=== PATIENT | female | born 2000 | race Caucasian/White ===

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

== ENCOUNTER 2021-02-28 19:12 | Emergency (ER) | payer OTHER, MEDICAID, SELFPAY ==
[2021-02-28 19:32] VITALS: BP 123/62; PULSE 80; RESP 16; TEMP 37.1; O2SAT 100; BMI 24.3
--- NOTE | 2021-02-28 19:35 | DI.RAD.S_ITS ---
PROCEDURE: XR TOE LT MIN 2V INDICATIONS: dropped bed frame on toe TECHNIQUE: 2 views of the 2nd toe(s) acquired. COMPARISON: None. FINDINGS: Bones: No fractures or dislocations. No suspicious bony lesions. Soft tissues: No suspicious soft tissue densities. IMPRESSION: No visualized acute fracture or dislocation. However, if clinical concern and/or pain persist, short interval imaging followup in 7-10 days is recommended, as occult injury cannot be definitively excluded. Dictated by: Yolanda Angel M.D. on 02/28/2021 at 19:57 Approved by: Yolanda Angel M.D. on 02/28/2021 at 19:58
--- NOTE | 2021-02-28 21:22 | ED_ITS ---
HPI - Extremity Injury (Lower) General Chief Complaint: Extremity Injury, Lower Stated Complaint: DROPPED HER BED ON HER LEFT FOOT Time Seen by Provider: 02/28/21 21:12 Source: patient Mode of arrival: Ambulatory History of Present Illness HPI Narrative: Patient is an 19-year-old female here for evaluation of an injury to the 2nd toe on her left foot. She dropped a piece of furniture on it earlier today. Has pain in the toe since then. Related Data Allergies Allergy/AdvReac Type Severity Reaction Status Date / Time No Known Drug Allergies Allergy Verified 04/02/20 19:42 Review of Systems Musculoskeletal Musculoskeletal: Reports system reviewed and no additional complaints, except as documented and Reports as per HPI Integumentary/Breasts Skin/Breast: Reports system reviewed and no additional complaints, except as documented and Reports as per HPI Neurologic Neurologic: Reports system reviewed and no additional complaints, except as documented Hematologic/Lymphatic On Anticoagulants: No Patient History Social History Smoking Status: Current every day smoker Smoking Status: Current every day smoker alcohol intake frequency: 0-2 drinks per day Substance Use Type: does not use Exam Initial Vital Signs Initial Vital Signs: Vital Signs Temperature 98.7 F 02/28/21 19:32 Pulse Rate 80 02/28/21 19:32 Respiratory Rate 16 02/28/21 19:32 Blood Pressure 123/62 02/28/21 19:32 Pulse Oximetry 100 02/28/21 19:32 Skin Other: Slight contusion at the base of the nail of the left 2nd toe. Neuro General: patient alert and patient awake Extrem Other: Pain to palpation left 2nd toe Course Orders Ordered: ED Orders 02/28/21 19:35 XR toe LT min 2V Stat Vital Signs Vital signs: Vital Signs - 8 hr 02/28/21 19:32 Temperature 98.7 F Pulse Rate 80 Respiratory Rate 16 Blood Pressure 123/62 Pulse Oximetry 100 MDM - Extremity Injury (Lower) Imaging Data Extremity x-ray #1: Radiologist's Impression: [address] [address] XRay Report Signed Patient: Any Austin MR#: [id number] : 2000 Acct:[id number] Age/Sex: 20 / F Date of Service: 02/28/21 Loc: ED Accession Number: [id number] ?? Procedure: XR toe LT min 2V Ordering Provider: Brandon Vasquez D.O. PROCEDURE:? XR TOE LT MIN 2V ? INDICATIONS:? dropped bed frame on toe ? TECHNIQUE:? 2 views of the 2nd toe(s) acquired.? ? COMPARISON:? None. ? FINDINGS:? ? Bones:? No fractures or dislocations.? No suspicious bony lesions.? ? Soft tissues:? No suspicious soft tissue densities.? ? IMPRESSION:? No visualized acute fracture or dislocation. However, if clinical concern and/or pain persist, short interval imaging followup in 7-10 days is recommended, as occult injury cannot be definitively excluded. ? ? Dictated by: Yolanda Angel M.D. on 02/28/2021 at 19:57 ? ? Approved by: Yolanda Angel M.D. on 02/28/2021 at 19:58? MDM Narrative Medical decision making narrative: No fractures on the x-ray, neurovascular intact, no further intervention to the emergency department. She was given care instructions return precautions. She expressed understanding and agreement. Discharge Plan Departure Patient Disposition: Home Clinical Impression: Contusion of toe Instructions: How To Perform RICE (Rest, Ice, Compress, Elevate) Activity Restrictions/Additional Instructions: There are no fractures noted on the x-rays. You can take Tylenol or ibuprofen for discomfort. You can ice the area as well. Return to the emergency department for any new or worsening symptoms. Referrals: Mark Pickens MD [Primary Care Provider] -
== END 2021-02-28 21:39 | disposition home or self-care (01) ==
PROVIDERS: Emergency Provider Emergency Medicine; PCP Pediatrics
DX: S90.122A Contusion of left lesser toe(s) without damage to nail, initial encounter (principal); W20.8XXA Other cause of strike by thrown, projected or falling object, initial encounter
CPT/HCPCS: 73660; 99281; 99283

== ENCOUNTER 2023-03-18 09:32 | Emergency (ER) | payer OTHER, MEDICAID, SELFPAY ==
[2023-03-18 09:45] VITALS: BP 114/63; PULSE 89; RESP 16; TEMP 36.4; O2SAT 96; BMI 32.6
--- NOTE | 2023-03-18 11:05 | ED_ITS ---
HPI - Skin/Abscess/Foreign Bdy <Britany Rodgers PA-C - Last Filed: 03/18/23 20:06> General Chief complaint: Skin/Abscess/Foreign Body Stated complaint: Mass under L breast Time Seen by Provider: 03/18/23 11:04 History of Present Illness HPI narrative: This is a 22-year-old woman who is obese but denies other medical problems who presents with concern for left breast pain. Patient states the pain started on Saturday when she was having sex with her partner. She describes it as a burning pain that is underneath her left nipple and that she also feels in her skin wrapping around her side towards her back on the left. She denies chest pain or abdominal pain states that this feels more like a skin irritation or pain. She feels she has seen some redness in the area and also feels that there may be some lumpiness to her breast at the site of pain. She is tried Tylenol and ibuprofen it has not helped very much. She states that she was vaccinated for chickenpox and does not think she ever had it. She has not noticed any rashes in the area of her pain nor has she had any nipple discharge or drainage. She states she is very nervous and concerned that her symptoms today could represent breast cancer because her grandmother had breast cancer recently and is going back for re-evaluation and mammogram soon as there is some concern she may have a recurrence. Patient denies any personal history of breast cancer or any other family history of breast cancer. She denies fevers chills nausea vomiting back pain chest pain abdominal pain or any other symptoms and has otherwise been in her usual state of. She is currently menstruating and is on day 7 of her cycle. Related Data Previous Rx's Medication Instructions Recorded cephalexin 500 mg capsule 500 mg PO Q8H 10 days #30 caps 03/18/23 lidocaine 5 % topical ointment 1 applic topical TID PRN pain 7 03/18/23 days #30 grams Allergies Allergy/AdvReac Type Severity Reaction Status Date / Time No Known Drug Allergies Allergy Verified 03/07/21 11:21 Review of Systems <Britany Rodgers PA-C - Last Filed: 03/18/23 20:06> Review of Systems Narrative: See HPI Patient History <Britany Rodgers PA-C - Last Filed: 03/18/23 20:06> Social History Smoking Status: Current every day smoker Smoking Status: Current every day smoker alcohol intake frequency: 0-2 drinks per day Substance Use Type: does not use Exam <Britany Rodgers PA-C - Last Filed: 03/18/23 20:06> Narrative Exam Narrative: GENERAL: [22] year old patient appears stated age. Well-developed patient, in mild distress. HEAD: Atraumatic. Normocephalic. EYES: Pupils equal round and reactive. Extraocular motions intact. No scleral icterus. No injection or drainage. ENT: Nose without bleeding, purulent drainage. Airway patent. NECK: Trachea midline. Non tender CARDIOVASCULAR: Regular rate and rhythm without murmurs, gallops, or rubs. RESPIRATORY: Clear to auscultation. Breath sounds equal bilaterally. No wheezes, rales, or rhonchi. GASTROINTESTINAL: Abdomen nondistended. EXTREMITIES: No edema or joint tenderness. BACK: See skin. Nontender without deformity or crepitance. No flank tenderness. NEURO: AOx3. SKIN: Limited breast exam of leftbreast with RN Nayely present in the room as party plan sales director reveals no appreciable erythema in the area of the patient's discomfort, the left breast does appear to be slightly more swollen/enlarged than the right, there is no firmness or induration present there is some tenderness present however it is specifically sensitive at the skin itself around 6 o'clock and laterally wrapping around the rib cage to the flankbut not tender with palpation. No rash or erythema of visible areas Initial Vital Signs Initial Vital Signs: Vital Signs Temperature 97.6 F 03/18/23 09:45 Pulse Rate 89 03/18/23 09:45 Respiratory Rate 16 03/18/23 09:45 Blood Pressure 114/63 03/18/23 09:45 Pulse Oximetry 96 03/18/23 09:45 Oxygen Delivery Method Room Air 03/18/23 09:45 <Radha Ibrahim DO - Last Filed: 03/19/23 09:39> Initial Vital Signs Initial Vital Signs: Vital Signs Temperature 97.6 F 03/18/23 09:45 Pulse Rate 89 03/18/23 09:45 Respiratory Rate 16 03/18/23 09:45 Blood Pressure 114/63 03/18/23 09:45 Pulse Oximetry 96 03/18/23 09:45 Oxygen Delivery Method Room Air 03/18/23 09:45 Course <Britany Rodgers PA-C - Last Filed: 03/18/23 20:06> Orders Ordered: ED Orders 03/18/23 11:43 US breast LT limited Stat Vital Signs Vital signs: Vital Signs - 8 hr 03/18/23 15:06 03/18/23 16:15 Pulse Rate 69 89 Respiratory Rate 18 Blood Pressure 95/62 136/63 Pulse Oximetry 96 96 Oxygen Delivery Method Room Air Room Air <Radha Ibrahim DO - Last Filed: 03/19/23 09:39> Orders Ordered: ED Orders 03/18/23 11:43 US breast LT limited Stat Vital Signs Vital signs: Vital Signs - 8 hr 03/18/23 15:06 03/18/23 16:15 Pulse Rate 69 89 Respiratory Rate 18 Blood Pressure 95/62 136/63 Pulse Oximetry 96 96 Oxygen Delivery Method Room Air Room Air MDM - Skin/Abscess/Foreign Bdy <Britany Rodgers PA-C - Last Filed: 03/18/23 20:06> Differential Diagnosis Differential diagnosis: Likely abscess of skin or subcutaneous tissue, herpes zoster, cellulitis and other (mastitis) Medical Records Attestation: I reviewed the patient's medical records. Imaging Data US breast: Radiologist's Impression: Left breast ultrasound was obtained however radiology read did not transfer over to [facility] charting system due to a system wide computer error, and unable to obtain paper read out prior to end of shift however before discharging the patient did discuss imaging results with Radiology who advised this was read as a normal breast ultrasound. Treatment and disposition Shared decision making:: Shared decision-making was used in determining plan of care and evaluation for this patient in the emergency department and plan for outpatient follow-up. MDM Narrative Medical decision making narrative: This is a well-appearing obese 22-year-old female with no significant medical history who presents with concern for breast skin pain below the left nipple with concern for swelling of the left breast as compared to the right and pain in her skin wrapping around her side. Patient denies any chance of and has not had other concerning symptoms such as fevers chills. On presentation she is anxious specifically about the possibility of breast cancer though her symptoms have been present for 2 days' time. Exam is not suggestive of this there are no appreciable skin changes noted however she does have skin sensitivity and the left breast does appear to be slightly swollen as compared to the right. Ultrasound was obtained for further evaluation. Exam does not suggest abscess, cellulitis is considered given skin sensitivity however given the pattern of the pain and the nature of the pain described as burning wrapping around the rib I am somewhat suspicious for herpes zoster. There are no skin changes consistent with this at present. Tylenol and ibuprofen have done little to relieve the patient's discomfort. She reports that she never had chickenpox to her knowledge but she has been vaccinated for chickenpox. She has not had the shingles vaccine. Did call Radiology/ultrasound and discuss ultrasound with them was advised that it was negative/normal, do not have results back at time of discharge however patient has been in the emergency department for over 5 hours and see no reason to hold her longer. Advise the patient will call her with any abnormal results seen on ultrasound. She was discharged with prescription for cephalexin given presumed mild mastitis as cause of her symptoms, as well as lidocaine for pain. Return precautions provided, follow-up plan discussed, all questions answered. Discharge Plan Departure Patient Disposition: Home Clinical Impression: Breast pain, left, Cutaneous sensitivity Activity Restrictions/Additional Instructions: *You have been diagnosed with [left breast pain, no specific diagnosis, possible mild mastitis/cellulitis] *What to do: *Please continue to take your regular medications as directed. [2 ] New medication prescriptions sent to your pharmacy: [Lidocaine, cephalexin ] [ ] New medication written as a paper prescription [ ] No new medications given *Please follow up with your primary care provider in 2-3 days, call for an appointment. Let them know you were seen in the Emergency Department and that we ask that you be seen in follow up. We will electronically transmit a record of today's note if your PCP is in our system. As we discussed at your visit they are multiple potential etiologies or causes for your pain and discomfort of your left breast, the pattern does fit potentially with shingles but you have no history of chickenpox so this is extremely unlikely. We are going to treat with antibiotics today as we discussed and I am hoping that this will resolve on its own and or with the antibiotics if it is a mild mastitis or cellulitis. Thank you for your patients today on a busy day in the emergency department I am sorry you had such a long day and wait for your ultrasound read. I did speak with Radiology by phone and they advised that your ultrasound looked normal. I still do not have the read back at time of discharge and if I see any abnormality on it we will give you a call but I did not want to hold you in the emergency department longer still. In addition to antibiotics I also sent in a prescription for lidocaine which you can use as a numbing medication over the area of pain. *If you do not have a primary care provider please contact the [facility] Resource line at [phone]. They will ask some questions about your medical history and help get you set up with a doctor in the community. *Return to Emergency Department if you should have any new, worsening or concerning symptoms, such as [fever greater than 101 F, shaking chills, worsening pain, persistent vomiting or other bothersome symptoms] Prescriptions: New cephalexin 500 mg capsule 500 mg PO Q8H 10 Days Qty: 30 0RF lidocaine 5 % ointment 1 applic topical TID PRN (Reason: pain) 7 Days Qty: 30 0RF Referrals: Mark Pickens MD [Primary Care Provider] - Stand Alone Forms: Patient Portal/API ED Sign-out <Radha Ibrahim DO - Last Filed: 03/19/23 09:39> Cosign ED Attending Timmy Attestation: I was immediately available in the department for consultation.
--- NOTE | 2023-03-18 11:43 | DI.US.S_ITS ---
LIMITED ULTRASOUND OF LEFT BREAST: 03/18/2023 CLINICAL: Palpable left breast lump. No prior exams were available for comparison. Color flow and real-time ultrasound of the left breast 6 o'clock region were performed on the areas of interest. Sosa scale images of the real-time examination were reviewed. IMPRESSION: NEGATIVE There is no sonographic evidence of malignancy. There is no sonographic abnormality seen in the left breast to correspond with the palpable abnormality and pain, however, clinical followup is recommended. This exam was interpreted at Station ID: [id number]. Electronically Signed By: Isabel sheriff/lupe:03/18/2023 12:23:16 letter sent: Clinical Evaluation Ultrasound BI-RADS: 1 Negative
[2023-03-18 15:06] VITALS: BP 95/62; PULSE 69; RESP 18; O2SAT 96
[2023-03-18 16:15] VITALS: BP 136/63; PULSE 89; O2SAT 96
== END 2023-03-18 16:16 | disposition home or self-care (01) ==
PROVIDERS: Emergency Provider Student in an Organized Health Care Education/Training Program; PCP Pediatrics
DX: N64.4 Mastodynia (principal)
CPT/HCPCS: 76642; 99283

== ENCOUNTER 2023-08-09 02:19 | Emergency (ER) | payer OTHER, MEDICAID, SELFPAY ==
[2023-08-09 02:40] VITALS: BP 121/78; PULSE 115; RESP 22; TEMP 36.8; O2SAT 98; BMI 38.1
--- NOTE | 2023-08-09 03:10 | ED_ITS ---
HPI - Wound/Laceration General Chief Complaint: Wound/Laceration Stated Complaint: left thumb finger sliced Time Seen by Provider: 08/09/23 03:10 Source: patient Mode of arrival: Ambulatory History of Present Illness HPI narrative: 22-year-old female with no reported medical issues who was cleaning her vape pen with a knife when she cut her thumb on her left hand. Patient states bleed somewhat. It gaps when she bends her thumb. She states no other injuries. She states her tetanus is up-to-date. No numbness tingling or weakness. Denies any allergies to medications. States no daily medications. States she does have an IUD. Related Data Allergies Allergy/AdvReac Type Severity Reaction Status Date / Time No Known Drug Allergies Allergy Verified 07/30/23 07:58 Review of Systems Review of Systems ROS Unobtainable: All systems reviewed & are unremarkable except as noted in HPI and below Patient History Medical History Tinnitus (~2012) Painful menstrual periods Irregular menstrual cycle Heavy menstrual period Insomnia Breast pain Abnormal uterine bleeding (AUB) Surgical History Anesthesia [place] teeth removed (~09/2020) Family History Father History of heart disease Stroke Mother Cancer Brain tumor Sister No problems noted. Grandfather Diabetes mellitus Hyperlipidemia Hypertension Mental health problem Grandmother Breast cancer Diabetes mellitus Hyperlipidemia Grandfather Stroke Social History Smoking Status: Current every day smoker Smoking Status: Current every day smoker alcohol intake frequency: 0-2 drinks per day Substance Use Type: does not use Exam Narrative Exam Narrative: GENERAL: Alert and oriented x three, female in mild distress. HEENT: Head normocephalic, atraumatic, EOMI, pupils reactive, face symmetric, moist mucous membranes NECK: Supple, full range of motion NEUROLOGICAL: Cranial nerves II through XII grossly intact. Moving all extremities SKIN: Warm, dry, no petechiae, no rashes, patient has a laceration over the dorsum of her thumb on her left hand, proximally 1 cm in length, slightly gapped between the nail and the distal joint. Does not appear to be any nail involvement. Initial Vital Signs Initial Vital Signs: Vital Signs Temperature 98.3 F 08/09/23 02:40 Pulse Rate 115 H 08/09/23 02:40 Respiratory Rate 22 08/09/23 02:40 Blood Pressure 121/78 08/09/23 02:40 Pulse Oximetry 98 08/09/23 02:40 Oxygen Delivery Method Room Air 08/09/23 02:40 Procedures Laceration Repair Laceration 1: Site: hand (Left thumb) Side (If applicable): left Size (cm): 1 Description: linear Depth: simple, single layer Local Anesthetic: lidocaine 2% Amount of anesthesia used (mL): 3.5 Pre-repair: wound explored, irrigated extensively and deep structures intact Skin layer closed with: nylon (patient also had a small portion of dermabond at the center 2nd to lac of skin at nail. ) Skin layer suture size: 5-0 Number of sutures: 3 Technique: simple, interrupted Course Orders Ordered: Discontinued Medications Lidocaine HCl (Lidocaine 2% Inj Sdv 5ml) 5 ml INJ INTRA-OP ONE Stop: 08/09/23 03:20 Vital Signs Vital signs: Vital Signs - 8 hr 08/09/23 02:40 08/09/23 04:05 Temperature 98.3 F 98.4 F Pulse Rate 115 H 85 Respiratory Rate 22 15 Blood Pressure 121/78 135/87 Pulse Oximetry 98 Oxygen Delivery Method Room Air Room Air MDM - Wound/Laceration MDM Narrative Medical decision making narrative: 22Year old female laceration to her left thumb, does not involve but is quite close there was minimal skin adjacent. So patient had 3 sutures on each side and then a very small dose of Dermabond placed. Wound is clean, nail is intact. Discharge Plan Departure Patient Disposition: Home Clinical Impression: Laceration of left thumb Instructions: DI for Laceration Repair Activity Restrictions/Additional Instructions: Follow up in 7-10 days for suture removal with primary care, urgent care or the emergency department. Wound Care: Keep wound(s) clean and dry. Wash daily with soap and water only. Do not use over the counter products (alcohol or peroxide)on the wounds unless instructed by a physician. If wound condition worsens (increased/expanding redness, developing fluid blisters, or worsening pain), either contact your doctor for an urgent re- assessment , or return to the Emergency Department. Return to the Emergency Department for any new or worsening symptoms, if fever greater than 100.4 Fahrenheit, increased swelling, increasing pain or worsening symptoms such as increased discharge or spreading redness. Referrals: Berkley Quezada MD [Primary Care Provider] - Stand Alone Forms: Patient Portal/API, Work Release Note
[2023-08-09 04:05] VITALS: BP 135/87; PULSE 85; RESP 15; TEMP 36.9
== END 2023-08-09 04:07 | disposition home or self-care (01) ==
PROVIDERS: Emergency Provider Emergency Medicine; PCP Family Medicine
DX: S61.012A Laceration without foreign body of left thumb without damage to nail, initial encounter (principal); W26.0XXA Contact with knife, initial encounter
CPT/HCPCS: 12001; 99281; 99283

== ENCOUNTER 2024-01-21 08:50 | Emergency (ER) | payer OTHER, MEDICAID, SELFPAY ==
[2024-01-21 08:53] VITALS: BP 132/85; PULSE 100; RESP 18; TEMP 36.9; O2SAT 100; BMI 35.5
--- NOTE | 2024-01-21 09:05 | ED_ITS ---
HPI - GI Bleed General Chief complaint: GI Bleed Stated complaint: Bleeding from her Rectum Time Seen by Provider: 01/21/24 09:05 Source: patient, RN notes reviewed and old records reviewed Mode of arrival: Ambulatory Limitations: no limitations History of Present Illness HPI Narrative: 23-year-old female on trazodone for insomnia who presents with complaint of rectal bleeding. Patient states this morning had a bowel movement she states it was painful, was hard. She had blood. She states no abdominal pain. She was has a little bit of mild cramping. Denies fevers no nausea or vomiting. No dysuria urgency or frequency. No vaginal bleeding. Has not had any rectal bleeding in the past. Was bright red. She has a photo of the toilet paper, as well as the stool which has a little bit of red blood on the outer portion of the stool and the stool appears quite hard in the image. Patient denies any other symptoms. States no prior surgeries. No known drug allergies. She is accompanied by her grandmother. Related Data Previous Rx's Medication Instructions Recorded trazodone 50 mg tablet 50 mg PO BEDTIME PRN sleep #30 tabs 01/20/24 Allergies Allergy/AdvReac Type Severity Reaction Status Date / Time No Known Drug Allergies Allergy Verified 01/20/24 09:27 Review of Systems Review of Systems ROS Unobtainable: All systems reviewed & are unremarkable except as noted in HPI and below Patient History Medical History Tinnitus (~2012) Painful menstrual periods Irregular menstrual cycle Heavy menstrual period Insomnia Breast pain Abnormal uterine bleeding (AUB) Surgical History Anesthesia [place] teeth removed (~09/2020) Family History Father History of heart disease Stroke Mother Cancer Brain tumor Sister No problems noted. Grandfather Diabetes mellitus Hyperlipidemia Hypertension Mental health problem Grandmother Breast cancer Diabetes mellitus Hyperlipidemia Grandfather Stroke Social History Smoking Status: Current every day smoker Smoking Status: Current every day smoker tobacco type: vaping alcohol intake frequency: 0-2 drinks per day Substance Use Type: does not use Exam Narrative Exam Narrative: GENERAL: Alert and oriented x three, mild distress HEENT: Head normocephalic, atraumatic, EOMI, pupils reactive, face symmetric, moist mucous membranes NECK: Supple, full range of motion CARDIOVASCULAR: Regular rate and rhythm without murmurs, rubs or gallops. RESPIRATORY: Breath sounds equal bilaterally, no wheezes rales or rhonchi. ABDOMEN: Soft, nontender. Normoactive bowel sounds all 4 quadrants. No guarding or rebound, rigidity, no mass, digital rectal exam patient has a small internal hemorrhoid at the 6 o'clock position that is slightly extruding externally. Mildly tender to touch. No swelling no warmth no fluctuance. Induction Coordination Engineer RUSLAN Bernal : No CVA tenderness EXTREMITIES: Normal range of motion, no clubbing or edema. Neurovascularly intact NEUROLOGICAL: Cranial nerves II through XII grossly intact. Moving all extremities. Normal gait. SKIN: Warm, dry, no petechiae, no rashes or lesions. Initial Vital Signs Initial Vital Signs: Vital Signs Temperature 98.4 F 01/21/24 08:53 Pulse Rate 100 H 01/21/24 08:53 Respiratory Rate 18 01/21/24 08:53 Blood Pressure 132/85 01/21/24 08:53 Pulse Oximetry 100 01/21/24 08:53 Oxygen Delivery Method Room Air 01/21/24 08:53 Course Vital Signs Vital signs: Vital Signs - 8 hr 01/21/24 08:53 Temperature 98.4 F Pulse Rate 100 H Respiratory Rate 18 Blood Pressure 132/85 Pulse Oximetry 100 Oxygen Delivery Method Room Air MDM - GI Bleed MDM Narrative Medical decision making narrative: 23-year-old female who had small amount of bright red blood from rectum earlier today after having a hard constipated bowel movement. She does have a small internal hemorrhoid on exam. Patient's appears stable. She was quite anxious and embarrassed to be here. Discussed findings from today we will defer any lab work at this time. Discussed to treat with stool, can use [id number] remedies such as tucks pads or hemorrhoid cream. They defer a prescription for Proctofoam. Discussed if she was having any persistent bleeding or painless bleeding she should have follow up for colonoscopy. All questions answered. Discharge Plan Departure Patient Disposition: Home Clinical Impression: Hemorrhoid, BRBPR (bright red blood per rectum) Instructions: DI for Hemorrhoids Activity Restrictions/Additional Instructions: You have a small hemorrhoid that is likely causing your bleeding today. If you have persistent bleeding or no improvement after treating with stool softeners you should follow up for repeat evaluation and colonoscopy. Take a stool softener such as MiraLax or Colace 1 or 2 times daily until stools are soft and regular. You can use [id number] treatments for hemorrhoids to the affected area. You can also use Sitz baths or warm baths 1 or 2 times daily to the affected area for discomfort. Please return if you develop rapidly worsening pain, persisting or increasing amounts of bleeding, large clots, lightheadedness or passing out, new abdominal back or flank pain, vomiting or other new or concerning changes. Prescriptions: No Action trazodone 50 mg tablet 50 mg PO BEDTIME PRN (Reason: sleep) Qty: 30 0RF Referrals: Berkley Quezada MD [Primary Care Provider] - Stand Alone Forms: Patient Portal/API/Survey
--- NOTE | 2024-01-21 09:39 | PC.NURSE ---
Pt reports constant blood on toilet paper when wiping. Notable hemorrhoid on MD palpation of rectum noted. Pt reports possible rough stools
== END 2024-01-21 09:40 | disposition home or self-care (01) ==
PROVIDERS: Emergency Provider Emergency Medicine; PCP Family Medicine
DX: K64.9 Unspecified hemorrhoids (principal)
CPT/HCPCS: 99281

== ENCOUNTER 2024-03-23 13:32 | Emergency (ER) | payer OTHER, SELFPAY ==
[2024-03-23] VITALS (9 sets, daily range): BP systolic 96–137; BP diastolic 57–65; PULSE 82–100; RESP 18; TEMP 35.7; O2SAT 97–99; BMI 35.3
--- NOTE | 2024-03-23 16:00 | ED.FEMALEGU ---
HPI - Female Genitourinary General Chief complaint: Urogenital-Female Stated complaint: IUD dislodged possibly Time Seen by Provider: 03/23/24 16:00 Source: patient, RN notes reviewed and old records reviewed Mode of arrival: Ambulatory Limitations: no limitations History of Present Illness HPI Narrative: 23-year-old female on trazodone for insomnia with complaint of pelvic pain. Patient states she sat down this morning to go to the bathroom and felt a pop and had immediate suprapubic pain sort of radiating to both sides. Patient states it feels like or somewhat worse than when she had her IUD placed. Patient states has been persistent throughout the day. No fevers no chest pain or shortness of breath no nausea or vomiting. No issues with bowel movements no dysuria urgency or frequency. She has chronically little bit of discharge has not noticed any change she has not had any spotting or vaginal bleeding. She does not get regular periods. Patient states IUD was placed about a year ago. She defers anything for pain. No known drug allergies. Does note that she was sexually active. Related Data Previous Rx's Medication Instructions Recorded trazodone 50 mg tablet 50 mg PO BEDTIME PRN sleep #30 tabs 01/20/24 doxycycline hyclate 100 mg tablet 100 mg PO BID #20 tabs 03/23/24 Allergies Allergy/AdvReac Type Severity Reaction Status Date / Time No Known Drug Allergies Allergy Verified 01/20/24 09:27 Review of Systems Review of Systems ROS Unobtainable: All systems reviewed & are unremarkable except as noted in HPI and below Patient History Medical History Tinnitus (~2012) Painful menstrual periods Irregular menstrual cycle Heavy menstrual period Insomnia Breast pain Abnormal uterine bleeding (AUB) Surgical History Anesthesia [place] teeth removed (~09/2020) Family History Father History of heart disease Stroke Mother Cancer Brain tumor Sister No problems noted. Grandfather Diabetes mellitus Hyperlipidemia Hypertension Mental health problem Grandmother Breast cancer Diabetes mellitus Hyperlipidemia Grandfather Stroke tobacco type: vaping Exam Narrative Exam Narrative: GENERAL: Alert and oriented x three, female in mild distress. HEENT: Head normocephalic, atraumatic, EOMI, pupils reactive, face symmetric, moist mucous membranes NECK: Supple, full range of motion CARDIOVASCULAR: Regular rate and rhythm without murmurs, rubs or gallops. RESPIRATORY: Breath sounds equal bilaterally, no wheezes rales or rhonchi. ABDOMEN: Soft, nontender. Normoactive bowel sounds all 4 quadrants. No guarding or rebound, rigidity, no mass : No CVA tenderness. Female: External vaginal exam is normal, no vaginal bleeding, positive for white discharge, that has quite a bit of discharge was difficult to see if there was any IUD string was not able to clearly visualize. positive for cervical motion tenderness, no adnexal tenderness/mass. Bimanual exam is normal, no enlarged or tender uterus. Non-gravid. EXTREMITIES: Normal range of motion, no clubbing or edema. Neurovascularly intact NEUROLOGICAL: Cranial nerves II through XII grossly intact. Moving all extremities SKIN: Warm, dry, no petechiae, no rashes or lesions. Initial Vital Signs Initial Vital Signs: Vital Signs Temperature 96.2 F L 03/23/24 13:51 Pulse Rate 82 03/23/24 13:51 Respiratory Rate 18 03/23/24 13:51 Blood Pressure 137/63 03/23/24 13:51 Pulse Oximetry 97 03/23/24 13:51 Oxygen Delivery Method Room Air 03/23/24 13:51 Course Orders Ordered: ED Orders 03/23/24 16:10 Genital Culture Stat 03/23/24 16:11 US pelvic complete Stat 03/23/24 16:28 Chlamydia Gonorrhea PCR -URINE Stat Discontinued Medications Ceftriaxone Sodium (Ceftriaxone 1,000 Mg Vial) 500 mg IM NOW ONE Stop: 03/23/24 16:19 Lidocaine HCl (Lidocaine 1% (Pf) 5 Ml) 2.1 ml INJ NOW ONE Stop: 03/23/24 16:19 Vital Signs Vital signs: Vital Signs - 8 hr 03/23/24 13:51 03/23/24 15:32 03/23/24 15:33 Temperature 96.2 F L Pulse Rate 82 90 82 Respiratory Rate 18 Blood Pressure 137/63 Pulse Oximetry 97 98 99 Oxygen Delivery Method Room Air 03/23/24 15:34 03/23/24 15:34 03/23/24 16:18 Temperature Pulse Rate 82 100 H Respiratory Rate Blood Pressure 117/57 L Pulse Oximetry 99 99 Oxygen Delivery Method 03/23/24 16:19 03/23/24 16:19 03/23/24 16:29 Temperature Pulse Rate 97 H 86 Respiratory Rate Blood Pressure 120/65 Pulse Oximetry 98 98 Oxygen Delivery Method 03/23/24 16:30 03/23/24 16:30 03/23/24 18:42 Temperature Pulse Rate 87 85 Respiratory Rate 18 Blood Pressure 124/59 L 96/60 Pulse Oximetry 99 99 Oxygen Delivery Method Room Air MDM - Female Genitourinary Lab Data Labs: Lab Results 03/23/24 Range/Units 16:28 Ur Chlamydia DNA (PCR) Not detected N gonorrhoeae DNA (PCR) Not detected Point of Care Testing Test Results Negative Urine Dip Bedside Urine Glucose Negative Bedside Urine Bilirubin - Negative Bedside Urine Ketone - Negative Urine Specific [place] 1.010 Bedside Urine Occult Blood - Negative Bedside Urine pH 7.5 Bedside Urine Protein - Negative Bedside Urine Urobilinogen - Negative Bedside Urine Nitrite - Negative Bedside Urine Leukocytes - Negative Esterase Imaging Data US - RECORD SYSTEMS ANALYST: Radiologist's Impression: [place] [address] Ultrasound Report Signed Patient: Any Austin MR#: [id number] : 2000 Acct:[id number] Age/Sex: 23 / F Date of Service: 03/23/24 Loc: ED Accession Number: [id number] Procedure: US pelvic complete Ordering Provider: Radha Ibrahim D.O. PROCEDURE: US PELVIC COMPLETE INDICATIONS: ? IUD in place, + cervical motion tenderness TECHNIQUE: Real-time scanning was performed of the pelvic organs, with image documentation. Additional endovaginal scanning was necessary due to incomplete visualization of the adnexal and endometrial structures by transabdominal scanning. COMPARISON: None. FINDINGS: Uterus: 7.7 x 4.9 x 4.3 cm. Anteverted positioning. IUD is seen within the endometrial canal. Ovaries: Nonenlarged right ovary measuring 7 cc. Slightly prominent left ovary measuring 12 cc. Color and spectral flows are identified bilaterally. Complicated appearing ovarian cyst on the left measures 2.7 x 2.4 cm. Other: Hujs-ip-hailyaht simple fluid is seen in the adnexa, probably within physiologic limits. Incidentally noted right inguinal hernia containing fat measuring 1.7 cm. IMPRESSION: Incidentally noted right inguinal hernia containing fat measuring 1.7 cm at the neck, at a patient described area of concern. IUD is seen in expected position. Ynio-zz-ucenuzbi simple fluid in the pelvis, probably within physiologic limits Suspected complicated left ovarian cyst measures 2.7 x 2.4 cm, probably a hemorrhagic cyst. Consider 1-2 month ultrasound follow-up. Dictated by: Adarsh Delgado M.D. on 03/23/2024 at 17:29 Approved by: Adarsh Delgado M.D. on 03/23/2024 at 17:32 [facility] Narrative Medical decision making narrative: 23-year-old female with concern for dislodgement of her IUD notes she went to sit down earlier this morning to go to the bathroom and felt a pop in his had pain that feels very similar to when she would her IUD placed. On examination possibly see her strain but I am not convinced we will obtain ultrasound but she also has quite a bit of white discharge in his tender with palpation of the cervix. Genital culture as well as urine GC was sent and urine . Pelvic ultrasound IUD in expected position. Incidentally noted R inguinal hernia fat containing measuring 1.7cm, vmfp-bt-fvwlslmi simple fluid and pelvis probably within physiologic limits. Suspected complicated left ovarian cyst measuring 2.7 x 2.4 cm probably hemorrhagic consider 1 2 month ultrasound follow up IUD seen in expected position. Urine GC is negative Urine preg is negative Plan for Rocephin and oral antibiotics for cervicitis. Patient refused Rocephin but urine GC came back negative. We will continue with oral antibiotics for cervicitis. Patient has genital culture pending. Patient appears much more comfortable at this time she agrees with plan. I also spoke with the over the phone regarding findings from today. Discharge Plan Departure Patient Disposition: Home Clinical Impression: Cervicitis, Cyst of left ovary, Hernia, inguinal, right Instructions: DI for Acute Cervicitis Activity Restrictions/Additional Instructions: Your IUD is in place on ultrasound, you do have a left complex ovarian cyst that she would have ultrasound follow up in the next 1-2 months to make sure it is resolved. Complex cyst should be followed up with repeat ultrasound. Incidentally you have a right inguinal hernia with fat present this can also cause pain these are typically repaired by general surgery. Please follow up you can follow up with Dr. Gonzalez. Take oral antibiotics until completed. Prescription was sent to [facility] in [place] Please return for fevers, new or worsening abdominal back or flank pain, vomiting, difficulty with urination, black or bloody stools, lightheadedness or passing out or other new or concerning changes. Prescriptions: New doxycycline hyclate 100 mg tablet 100 mg PO BID Qty: 20 0RF No Action trazodone 50 mg tablet 50 mg PO BEDTIME PRN (Reason: sleep) Qty: 30 0RF Referrals: Marlen Man MD [Physician] - Berkley Quezada MD [Primary Care Provider] - Stand Alone Forms: Patient Portal/API/Survey
--- NOTE | 2024-03-23 16:11 | DI.US.S_ITS ---
PROCEDURE: US PELVIC COMPLETE INDICATIONS: ? IUD in place, + cervical motion tenderness TECHNIQUE: Real-time scanning was performed of the pelvic organs, with image documentation. Additional endovaginal scanning was necessary due to incomplete visualization of the adnexal and endometrial structures by transabdominal scanning. COMPARISON: None. FINDINGS: Uterus: 7.7 x 4.9 x 4.3 cm. Anteverted positioning. IUD is seen within the endometrial canal. Ovaries: Nonenlarged right ovary measuring 7 cc. Slightly prominent left ovary measuring 12 cc. Color and spectral flows are identified bilaterally. Complicated appearing ovarian cyst on the left measures 2.7 x 2.4 cm. Other: Lgnv-xb-sxscqccy simple fluid is seen in the adnexa, probably within physiologic limits. Incidentally noted right inguinal hernia containing fat measuring 1.7 cm. IMPRESSION: Incidentally noted right inguinal hernia containing fat measuring 1.7 cm at the neck, at a patient described area of concern. IUD is seen in expected position. Pmuy-xm-tufldrxq simple fluid in the pelvis, probably within physiologic limits Suspected complicated left ovarian cyst measures 2.7 x 2.4 cm, probably a hemorrhagic cyst. Consider 1-2 month ultrasound follow-up. Dictated by: Adarsh Delgado M.D. on 03/23/2024 at 17:29 Approved by: Adarsh Delgado M.D. on 03/23/2024 at 17:32
--- NOTE | 2024-03-23 17:08 | PC.NURSE ---
Pt currently declining Rocephin IM medication. RN educated pt on indication of why Rocephin is ordered. Pt still declining at this time. Will hold IM Rocephin
[2024-03-23 18:11] LABS: Urine N gonorrhoeae NOT DETECTED
[2024-03-23 18:15] LABS: Urine Chlamydia NOT DETECTED
== END 2024-03-23 19:11 | disposition home or self-care (01) ==
PROVIDERS: Emergency Provider Emergency Medicine; PCP Family Medicine
DX: N72 Inflammatory disease of cervix uteri (principal); N83.202 Unspecified ovarian cyst, left side; K40.90 Unilateral inguinal hernia, without obstruction or gangrene, not specified as recurrent
CPT/HCPCS: 76830; 76856; 81003; 81025; 87070; 87205; 87491; 87591; 93975; 99283

== ENCOUNTER → 2024-05-20 12:07 | Outpatient (CLI) | payer OTHER, SELFPAY ==
--- NOTE | 2024-05-20 12:09 | DI.US.S_ITS ---
PROCEDURE: US PELVIC COMPLETE INDICATIONS: Cyst of left ovary, inguinal hernia TECHNIQUE: Real-time scanning was performed of the pelvic organs, with image documentation. Additional endovaginal scanning was necessary due to incomplete visualization of the adnexal and endometrial structures by transabdominal scanning. COMPARISON: [facility], US, US PELVIC COMPLETE, 03/23/2024, 16:27. FINDINGS: Uterus: Linear echogenic intrauterine device is in place in expected position within the endometrial canal. Uterus is retroverted and normal in size at 6.5 x 4.5 x 4.5 cm. The myometrium is mildly heterogeneous. The endometrium echo complex measures 6 mm combined thickness. Ovaries: The right ovary measures 3.1 x 3.1 x 1.8 cm, with a calculated ovarian volume of 9.1 cc. The left ovary measures 3.0 x 2.3 x 1.8 cm, with a calculated ovarian volume of 6.5 cc. The ovaries have a normal sonographic appearance. More than 12 follicles in each ovary raise the suspicion for possible polycystic ovaries. In the absence of ovulatory dysfunction or clinically/biochemically diagnosed hyperandrogenism, findings are nonspecific and do not indicate the presence of polycystic ovarian syndrome. No adnexal masses are seen. Other: No pathologic free abdominal or pelvic fluid. Previously noted right inguinal hernia is not clearly delineated on this exam. Previously noted left ovarian/adnexal 2.7 cm cyst no longer evident. IMPRESSION: Previously noted left ovarian/adnexal cyst is no longer evident. Previously noted right inguinal hernia is not delineated on this exam. Greater than 12 follicles in each ovary raise the suspicion for possible polycystic ovary syndrome in the proper clinical setting. Intrauterine device in expected position. Mildly heterogeneous uterine myometrium nonspecific. We strive to produce accurate, complete, and clear reports of imaging services. To assist us in improving patient care, this report was composed using standard report templates and voice recognition software. Therefore, it may contain abnormal punctuation, insertions and/or omissions. Occasional wrong-word or sound-alike substitutions may occur. Though we review the report and make efforts to correct it, we do recommend that the report be read carefully in proper context to recognize any text inaccuracies. Dictated by: Estevan Gonsalez M.D. on 05/20/2024 at 13:45 Approved by: Estevan Gonsalez M.D. on 05/20/2024 at 13:57
== END ==
PROVIDERS: PCP Family Medicine; Referring Provider Family Medicine; Visit Provider Family Medicine
DX: N83.202 Unspecified ovarian cyst, left side (principal); K40.90 Unilateral inguinal hernia, without obstruction or gangrene, not specified as recurrent; Z97.5 Presence of (intrauterine) contraceptive device
CPT/HCPCS: 76830; 76856

== ENCOUNTER → 2024-07-22 15:00 | Outpatient (CLI) | payer OTHER, SELFPAY ==
--- NOTE | 2024-07-23 11:39 | DIET.OUTPTC ---
Dietary Outpatient Consultation Note Consultation Date: 07/22/2024 Assessment: 23 y F referred to dietitian for obesity. Pt reports recent dx of PCOS and wanting to learn dietary patterns for PCOS. Getting lab work on 07/28. Trouble sleeping whole life. Comes to appt reporting extreme exhaustion. Reports constant nausea and lack of appetite. Thus, does not eat some days. This has been going on for years. Other days diet recall consist of only the following: B-1pm a piece of fruit like apple, banana or grapes hot water with honey a couple bites (/4 c) of meat for dinner (730pm) 1 cup or less of orange juice or cranberry juice 64 oz water from bottle Recent weight loss reported. Bowel movements daily, mostly diarrhea 2x/day 5-6 days per week. Type 5 on [facility] stool chart. Ht: 5 ft 1 in Wt: 194 lb 6 oz (last PCP visit 05/26), now reports this morning was 182 lb (-6.4% weight loss within 2 months, non-severe) Nutrition Diagnosis: Inadequate oral intake r/t inconsistent PO intakes d/t nausea aeb pt reports days of intake with less than 1000 kcals Interventions: Discussed and provided handouts on the following: -Discussed importance of getting adequate nutrient in daily to promote appetite and reduce nausea, improve energy levels -Portion sizing -Education on label reading -Protein, sources and importance -Plate Method, impact of macronutrients on blood sugar, meal timing, carbohydrate counting, pairing macronutrients and spreading out carbohydrates -Recommended servings for carbohydrates at meals and snacks -Brainstormed appropriate meal plan based on food preferences Goals: -Eating 3-4x/day starting with bland, best tolerated foods (simple starches, fruit, tolerated meat) -B-fruit plus crackers and nut butter/Khmer yogurt, L-toast with almond butter and fruit, D-steak with toast or rice, onions as tolerated -Consistent protein source at each eating time as tolerated to prevent muscle mass loss with weight loss Impressions: Based on conversation suspect some level of nausea r/t lack of intake. Worked to start bland diet to promote appetite and reduce nausea with eventual goal of resuming regular, consistent meals in a balanced dietary pattern. EER: 30-45 g CHO at meals, 15-30 g CHO at snacks, 60-65 g protein (1g/kg of adjusted IBW vs 17% of kcals) Monitoring/Evaluations: f/u in 3-4 wks for lab results Electronically Signed by: Kenyatta Forrester 07/23/24 11:39 [address] [id number]
== END ==
PROVIDERS: PCP Family Medicine; Referring Provider Family Medicine
DX: E66.9 Obesity, unspecified (principal); E28.2 Polycystic ovarian syndrome; Z71.3 Dietary counseling and surveillance
CPT/HCPCS: 97802

== ENCOUNTER → 2024-09-17 12:50 | Outpatient (CLI) | payer OTHER, SELFPAY ==
[2024-09-17 13:06] LABS: Add Manual Diff / Slide Review NO; Hematocrit 41.7 % (36-46); Hemoglobin 14.3 g/dL (12.0-16.0); Lymphocytes Absolute Auto 2900 /uL (1100-4500); Mean Corpuscular HGB Conc 34.2 % (30-36); Mean Corpuscular Hemoglobin 30.4 PG (26-34); Mean Corpuscular Volume 88.8 fL (80-100); Platelet Count 257 X10^3/uL (150-400)
[2024-09-17 13:14] LABS: Hemoglobin A1C% w Est Avg Glu 4.9 % (4.0-6.0)
[2024-09-17 13:25] LABS: Alanine Aminotransferase 23 IU/L (<35); Albumin 4.6 g/dL (3.5-5.0); Albumin Globulin Ratio 1.5 (1.0-2.8); Alkaline Phosphatase 83 U/L (38-126); Blood Urea Nitrogen 15 mg/dL (7-17); Calcium 9.7 mg/dL (8.4-10.2); Carbon Dioxide 25 mmol/L (22-32); Chloride 105 mmol/L (98-107); Cholesterol 206 mg/dL (140-199); Estimated Glomerular Filt Rate > 60 mL/min (>60); Globulin 3.1 g/dL (1.7-4.1); Glucose 93 mg/dL (70-99); HDL Cholesterol 38 mg/dL (40-60); HEMOLYSIS < 15 (0-50); Potassium 4.6 mmol/L (3.4-5.1); Sodium 139 mmol/L (137-145); Total Protein 7.7 g/dL (6.3-8.2); Triglycerides 214 mg/dL (35-150)
[2024-09-17 13:56] LABS: TSH w/ Reflex to FT4 2.38 uIU/mL (0.47-4.68)
[2024-09-17 16:53] LABS: Follicle Stimulating Hormone 4.42 mIU/mL
[2024-09-27 14:09] LABS: Percent Free Testosterone 2.73
== END ==
PROVIDERS: PCP Family Medicine; Referring Provider Family Medicine; Visit Provider Family Medicine
DX: N94.6 Dysmenorrhea, unspecified (principal); N92.6 Irregular menstruation, unspecified; N92.0 Excessive and frequent menstruation with regular cycle; G47.00 Insomnia, unspecified
CPT/HCPCS: 36415; 80053; 80061; 83001; 83002; 83036; 84402; 84403; 84443; 85025